=== PATIENT | female | born 1960 | race Caucasian/White ===

== ENCOUNTER 2022-09-13 13:46 | Outpatient (CLI) | payer BC | END 2022-09-13 13:47 | disposition home or self-care (01) | LOC: CSHULT 13:46 | PROVIDERS: ATTEND Otolaryngology Otolaryngic Allergy | DX: E04.2 Nontoxic multinodular goiter (principal) | CPT/HCPCS: 76536 ==

== ENCOUNTER 2023-04-03 13:52 | Outpatient (CLI) | payer BC | END 2023-04-03 13:53 | disposition home or self-care (01) | LOC: CSHRAD 13:52 | PROVIDERS: ATTEND Internal Medicine Rheumatology | DX: M46.1 Sacroiliitis, not elsewhere classified (principal); M54.2 Cervicalgia; M54.50 Low back pain, unspecified; M51.36 Other intervertebral disc degeneration, lumbar region; M47.816 Spondylosis without myelopathy or radiculopathy, lumbar region; M47.812 Spondylosis without myelopathy or radiculopathy, cervical region | CPT/HCPCS: 72040; 72100; 72202 ==